=== PATIENT | female | born 1950 | race Caucasian/White ===

== ENCOUNTER → 2023-05-30 11:50 | Outpatient (BNVA) | payer MEDICARE, SELFPAY | PROVIDERS: Family Provider Family Medicine; PCP Family Medicine; Referring Provider Family Medicine; Visit Provider Internal Medicine Cardiovascular Disease | DX: R07.9 Chest pain, unspecified (principal); I49.9 Cardiac arrhythmia, unspecified; R07.89 Other chest pain; E83.110 Hereditary hemochromatosis; E89.0 Postprocedural hypothyroidism; R94.31 Abnormal electrocardiogram [ECG] [EKG] | CPT/HCPCS: 93005; 99204 ==

== ENCOUNTER 2023-06-07 07:50 | Outpatient (CLI) | payer MEDICARE, SELFPAY ==
--- NOTE | 2023-06-07 | ECG_ITS ---
[facility] Test Date: 2023-06-07 Pat Name: Winsome Ambrosio Department: Room: Gender: Female Pss Delivery Professional: Maryloucipriano HarringtonAngelo : 1950 Requested By: Kaylyn Willis Order Number: [id number] Reading MD: Kaylyn Willis M.D. Interpretive Statements NAME OF STUDY: LEXISCAN SESTAMIBI STRESS TEST INDICATION: CP, Ventricular Arrythmia PROCEDURE: At the baseline, the EKG revealed normal sinus rhythm with some nonspecific T wave changes. The baseline heart was 86 bpm with a blood pressue of 155/78 mm of Hg Lexiscan was infused over a period of 20 seconds. A total of 0.4 milligrams of Lexiscan was infused. The stress phase was continued for a total of 5 minutes. Heart rate at the end of the stress phase was 93 bpm with a blood pressure 105/59 mm of Hg. The EKG at the peak infusion revealed some nonspecific ST-T changes and premature ventricular contractions. Sestamibi was injected 20 seconds after the Lexiscan infusion. Heart rate at the end of the recovery phase was 99 bpm with a blood pressure of 106/61 mm of Hg. CONCLUSION: 1. Nonspecific EKG changes with Lexiscan infusion 2. No LexiScan induced chest pain. Lexiscan induced PVCs are noted on the monitor 3. Normal blood pressure and heart rate response 4. Sestamibi/sestamibi perfusion scan pending; see separate report. Electronically Signed On 06-14-2023 11:06:16 LAB ASSISTANT by Kaylyn Willis M.D. [email or web address]
[2023-06-07 08:11] VITALS: BMI 23.8
--- NOTE | 2023-06-07 08:12 | NMCV_ITS ---
NM lou perf SPECT r/s* [id number] Winsome Ambrosio Age: 72 Gender: F : 1950 Exam Date: 06/07/2023 08:51 Ordering Phys: Kaylyn Willis MD ([email or web address]) Technologist: MADDISON Austin Exam Location: [facility] Indications: CORONARY ANGIOPLASTY STATUS STRESS TEST Please [facility] IMAGE PROTOCOL Rest/Stress 1 Lexiscan Day Radiopharmaceutical Dose (mCi) Administration Site Administered by Rest: Tc-99m 10.5 IV MADDISON Rueda Sestamibi Stress:Tc-99m 32.4 IV MADDISON Rueda Sestamibi Rest: 07-Jun-2023 60 Discovery 630 Stress: 07-Jun-2023 30 Discovery 630 0.4mg Lexiscan. Images obtained in supine and prone position. SPECT RESULTS Technical Quality: Excellent Raw Data Analysis: Normal Image Corrections: No attenuation or motion correction applied Summed Stress Score: 4 Summed Rest Score: 3 Summed Difference Score: 1 PERFUSION FINDINGS Small to moderate area of minimal to moderately decreased tracer uptake in the mid inferolateral, apical inferior and apical lateral regions. Some reversibility was noted in the apical lateral region, with the supine imaging. With the prone imaging, uniform myocardial tracer uptake was noted FUNCTIONAL RESULTS (calculated via Gated SPECT) Stress Image LV EF (%): 92 Stress EDV (mL):39 TID: 0.73 Stress ESV (mL):3 FUNCTIONAL FINDINGS: Segmental wall motion analysis revealing no gross wall motion abnormalities IMPRESSIONS 1. Myocardial perfusion imaging revealing small to moderate area of minimal to moderately decreased tracer uptake, was noted in the inferolateral and apical regions with small area of reversibility in the apical lateral region, suggestive of myocardial scarring with ischemia in the distribution of the distal circumflex artery. However because of the inconsistency with the prone imaging, the reliability is questionable. Clinical correlation is recommended 2. Normal LV ejection fraction 92% 3. LV wall motion analysis revealing no gross wall motion abnormalities. 4. Normal LV volume. No similar previous studies are available for comparison Dr Kaylyn Willis MD [facility] (Electronically Signed) Final Date: 07 June 2023 12:26 S
[2023-06-07] MEDS: regadenoson 0.4 Mg/5 ml Syringe IVP (09:33)
[2023-06-07 09:40] VITALS: BP 106/61; PULSE 99
--- NOTE | 2023-06-07 11:15 | USCV_ITS ---
Winsome Ambrosio Age: 72 Gender: F : 1950 Exam Date: 06/07/2023 11:14 Ordering Phys: Kaylyn Willis MD ([email or web address]) Technologist: Michele Shaffer Exam Location: [facility] [place] Indication: chest pain BP: 135 / 78 HR: 84 Rhythm: Sinus Technical Quality: Adequate MEASUREMENTS (Male / Female) Normal Values 2D ECHO LVOT Diameter 2.0 cm LV Ejection Fraction MOD 2C 66.1 % LV Ejection Fraction 2C AL 70.8 % LA Diameter 3.5 cm LA Width 2.6 cm LA Height 4.5 cm RA Width 2.2 cm RA Height 3.2 cm Aorta at Sinotubular Diameter 2.2 cm M-MODE Aortic Annulus Diameter 2.3 cm LA Ao Ratio MM 1.6 MV E Point Septal Separation 0.5 cm DOPPLER AV Peak Velocity 134.0 cm/s LVOT Peak Velocity 103.0 cm/s AV Area Cont Eq vti 2.5 cm squared AV Area Cont Eq pk 2.5 cm squared MV Peak Velocity 108.0 cm/s MV Area PHT 6.7 cm squared Mitral E to A Ratio 0.7 MV E' Velocity 30.5 cm/s Mitral E to MV E' Ratio 7.4 Mitral E to LV E' Lateral Ratio 8.0 Mitral E to LV E' Septal Ratio 7.0 TR Peak Velocity 264.5 cm/s TR Peak Gradient 28.0 mmHg TR Mean Velocity 207.1 cm/s TR Mean Gradient 22.3 mmHg TR Velocity Time Integral 61.0 cm Right Atrial Pressure 8.0 mmHg Pulmonary Artery Systolic Pressu 36.0 mmHg PV Peak Velocity 100.0 cm/s RV Acceleration Time 0.1 s RV Ejection Time 0.3 s RV AcT/ET 0.4 FINDINGS Left Ventricle Normal left ventricular size and systolic function, EF 70 %. No regional wall motion abnormalities. Grade I/IV diastolic dysfunction (abnormal relaxation filling pattern), normal to mildly elevated filling pressures. Right Ventricle The right ventricle is normal in size and function. Right Atrium The right atrium is normal in size. Left Atrium Mildly increased left atrial size. Mitral Valve No gross abnormalities noted Aortic Valve Thickened aortic valve. Tricuspid Valve Trace tricuspid valve regurgitation. Estimated pulmonary artery peak systolic pressure 36 mmHg Pulmonic Valve Pulmonic valve not well visualized. Pericardium Normal pericardium without effusion. Aorta Normal aortic annulus size. IVC Inferior vena cava not visualized. CONCLUSIONS Normal left ventricular size and systolic function, EF 70 %. No regional wall motion abnormalities. Grade I/IV diastolic dysfunction (abnormal relaxation filling pattern), normal to mildly elevated filling pressures. Mildly increased left atrial size. Thickened aortic valve. Trace tricuspid valve regurgitation. Estimated pulmonary artery peak systolic pressure 36 mmHg. There is no pericardial effusion. There are no intracardiac masses. Technically somewhat difficult study because of the poor ultrasonic window. Dr Kaylyn Willis MD [facility] (Electronically Signed) Final Date: 08 June 2023 09:09 S
== END 2023-06-07 07:51 | disposition home or self-care (01) ==
PROVIDERS: PCP Family Medicine; Visit Provider Internal Medicine Cardiovascular Disease
DX: R07.9 Chest pain, unspecified (principal); Z98.61 Coronary angioplasty status
CPT/HCPCS: 36415; 78452; 93017; 93306; 96374; A9500; J2785